=== PATIENT | female | born 1970 | race Caucasian/White ===

== ENCOUNTER 2021-11-19 21:29 | Inpatient (IN) | payer BC ==
[~2021-11-19] VITALS: Ht 170.2 cm; Wt 56.8 kg
--- NOTE | 2021-11-19 22:33 | NUR ---
ekg called and patient taken to room 3
[2021-11-19 23:02] LABS: BASOPHILS # (AUTO) 0.1 X10'3 (0-0.2); BASOPHILS % (AUTO) 0.6 % (0-1); EOSINOPHILS # (AUTO) 0.1 X10'3 (0-0.9); EOSINOPHILS % (AUTO) 0.6 % (0-6); HEMOGLOBIN 13.7 g/dl (12.0-16.0); LYMPHOCYTES # (AUTO) 1.9 X10'3 (1.1-4.8); LYMPHOCYTES % (AUTO) 8.2 % (21-51); MEAN CORPUSCULAR HEMOGLOBIN 32.1 PG (27.0-31.0); MEAN CORPUSCULAR HGB CONC 33.3 g/dL (33.0-36.5); MEAN CORPUSCULAR VOLUME 96.4 FL (78-98); MEAN PLATELET VOLUME 6.9 FL (7.4-10.4); MONOCYTES # (AUTO) 1.3 X10'3 (0-0.9); MONOCYTES % (AUTO) 5.7 % (2-12); NEUTROPHILS # (AUTO) 19.2 X10'3 (1.8-7.7); NEUTROPHILS % (AUTO) 84.9 % (42-75); PLATELET COUNT 307 X10'3 (140-440); RED BLOOD COUNT 4.26 X10'6 (4.20-5.60); RED CELL DISTRIBUTION WIDTH 12.5 % (11.5-14.5); WHITE BLOOD COUNT 22.6 X10'3 (4.5-11.0)
[2021-11-19] MEDS ORDERED: normal saline 1000ML IV soln IVB ONE (23:15)
[2021-11-19] MEDS ORDERED: CefTRIAXone/D5W-Rocephin 1gm 50 ML IV ONE (23:15)
[2021-11-19] MEDS ORDERED: vancomycin/NS 1 GM ADD-VANTAGE 250 ML IV ONE (23:15)
[2021-11-19] MEDS ORDERED: fentaNYL/PF 50MCG/1 ML 2ML syringe IV ONE (23:20)
[2021-11-19] MEDS ORDERED: acetaminophen 325mg tablet PO ONE (23:20)
[2021-11-19] MEDS ORDERED: iohexol 300mg/ml 100ml inj. ONE (23:23)
[2021-11-19 23:25] LABS: ALANINE AMINOTRANSFERASE 73 U/L (12-78); ALBUMIN 2.8 G/DL (3.4-5.0); ALBUMIN/GLOBULIN RATIO 0.7 (1.1-1.5); ALKALINE PHOSPHATASE 94 IU/L (46-116); ANION GAP 5 (8-16); ASPARTATE AMINO TRANSFERASE 97 U/L (10-37); BILIRUBIN,TOTAL 0.6 MG/DL (0.1-1.0); BLOOD UREA NITROGEN 19 MG/DL (7-18); BUN/CREATININE RATIO 13.9 (6.6-38.0); CALCIUM 8.5 MG/DL (8.5-10.1); CHLORIDE 104 MMOL/L (99-107); CREATININE 1.37 MG/DL (0.40-0.90); GLUCOSE 114 MG/DL (70-104); POTASSIUM 3.4 MMOL/L (3.5-5.1); SODIUM 138 MMOL/L (135-145); TOTAL CARBON DIOXIDE 28.9 MMOL/L (24-32); TOTAL PROTEIN 6.6 G/DL (6.4-8.2); eGFR 41 ML/MIN
[2021-11-19 23:27] LABS: C-REACTIVE PROTEIN 22.39 MG/DL (0.0-0.5); MAGNESIUM 2.1 MG/DL (1.5-2.4)
[2021-11-20] VITALS (24 sets, daily range): BP systolic 100–146; BP diastolic 66–103
[2021-11-20] MEDS ORDERED: clindamycin 600mg/D5W 50ml 50 ML IV ONE (00:50)
[2021-11-20] MEDS ORDERED: acetaminophen 325mg tablet PO PRN (01:20)
[2021-11-20] MEDS ORDERED: potassium CL 10mEq/100ml bag 100 ML IV PRN (01:20)
[2021-11-20] MEDS ORDERED: magnesium 2GM in 50ml NS 50 ML IV PRN (01:20)
[2021-11-20] MEDS ORDERED: POTASSIUM BICARB 20meq eff tab 20 MEQ TABLET.EFF PO PRN ×2 (01:20)
[2021-11-20] MEDS ORDERED: morphine 2 MG/ML inj. syringe IV PRN ×3 (01:20→14:20)
[2021-11-20] MEDS ORDERED: magnesium 4gm in 100ml NS 100 ML IV PRN (01:20)
[2021-11-20] MEDS ORDERED: magnesium hydroxide 30ml (MOM) UD suspension PO PRN (01:20)
[2021-11-20] MEDS ORDERED: mag hydrox/Alum hydrox/simeth 30ml oral suspension PO PRN (01:20)
[2021-11-20] MEDS ORDERED: magnesium Cl slow-release 64mg tablet PO PRN (01:20)
[2021-11-20] MEDS: clindamycin 600mg/D5W 50ml 50 ML IV SCH ×2 (02:00→07:50)
[2021-11-20] MEDS: normal saline 1000ml 1,000 ML IV SCH ×3 (02:15→22:49)
[2021-11-20] MEDS ORDERED: NO HOME MEDS (04:51)
[2021-11-20] MEDS: docusate sod 100mg capsule PO SCH ×2 (07:34→21:06)
[2021-11-20] MEDS: heparin, porcine 5000 units/ml vial SQ SCH ×2 (07:36→20:59)
[2021-11-20] MEDS: ondansetron/PF 4mg/2ml inj IV PRN (07:41)
[2021-11-20] MEDS ORDERED: vancomycin/NS 1 GM ADD-VANTAGE 250 ML IV SCH (08:00)
[2021-11-20] MEDS: K and/or MAG REPLACEMENT MC SCH ×2 (08:00→20:00)
[2021-11-20] MEDS ORDERED: CefTRIAXone/D5W-Rocephin 1gm 50 ML IV SCH (08:00)
[2021-11-20] MEDS ORDERED: morphine 4 MG/ML inj SYRINge IM ONE (08:55)
[2021-11-20 09:06] LABS: MAGNESIUM 2.1 MG/DL (1.5-2.4)
[2021-11-20] MEDS ORDERED: HYDROcodone/acetaminophen 10/325mg tab PO ONE (10:40)
--- NOTE | 2021-11-20 11:00 | NUR ---
INCREASED SWELLING INTO PTS CHEST AND BACK. DECREASED MOBILITY. NOTIFIED MD OF CHANGES AND NOTIFIED OF NO URINE OUTPUT. GAVE VERBAL ORDER FOR ANDERSON CATH.
[2021-11-20] MEDS ORDERED: morphine 2 MG/ML inj. syringe IV ONE (11:25)
--- NOTE | 2021-11-20 11:28 | NUR ---
DR. LOWE AT BEDSIDE. VERBAL ORDERS FOR INCREASED PAIN MEDICATION GIVEN.
[2021-11-20] MEDS ORDERED: linezolid 600mg/300ml PREMIX 300 ML IV STA (11:40)
--- NOTE | 2021-11-20 11:40 | NUR ---
DR. CHEEK AT BEDSIDE
[2021-11-20] MEDS ORDERED: CefTRIAXone/D5W-Rocephin 1gm 50 ML IV STA (11:42)
[2021-11-20 13:03] LABS: URINE HCG NEGATIVE (NEG)
[2021-11-20 13:05] LABS: CLARITY,URINE SLIGHTLY CLOUDY (Clear); COLOR,URINE YELLOW (Yellow); GLUCOSE, URINE NEGATIVE (Neg); KETONES,URINE NEGATIVE (Neg); LEUKOCYTE ESTERASE ,URINE NEGATIVE (Neg); NITRITES, URINE POSITIVE (Neg); OCCULT BLOOD,URINE MODERATE (Neg); PROTEIN,URINE TRACE mg/dl (Neg); UROBILINOGEN,URINE 0.2 E.U/dL (0.2-1.0)
[2021-11-20 13:11] LABS: UA COLLECTION TYPE CLN CATCH MIDSTREAM
[2021-11-20 13:12] LABS: RBC,URINE TNTC /HPF (0-2); WBC,URINE 50-100 /HPF (0-4)
[2021-11-20 13:13] LABS: BACTERIA,URINE 1+ /HPF (Neg); MUCUS STRANDS NONE SEEN /LPF (Neg); SQUAMOUS EPITHELIAL CELL,UR FEW /LPF (FEW)
[2021-11-20 13:14] LABS: WBC CASTS 0-3 /LPF (NEGATIVE); WBC CLUMPS,URINE FEW /HPF (NEGATIVE)
[2021-11-20 13:15] LABS: COARSE GRANULAR CAST 0-3 /LPF (NEGATIVE)
[2021-11-20 13:16] LABS: URINE AMPHETAMINE SCREEN POSITIVE (Neg); URINE BARBITUATE SCREEN NEGATIVE (Neg); URINE BENZODIAZEPINES SCREEN POSITIVE (Neg); URINE CANNABINOID SCREEN POSITIVE (Neg); URINE COCAINE SCREEN NEGATIVE (Neg); URINE METHADONE SCREEN NEGATIVE (Neg); URINE OPIATE SCREEN POSITIVE (Neg); URINE PHENCYCLIDINE SCREEN NEGATIVE (Neg)
[2021-11-20] MEDS ORDERED: proCHLORperazine 10 MG/2 ml inj IV PRN (14:20)
[2021-11-20] MEDS ORDERED: morphine 4 MG/ML inj SYRINge IV PRN (14:20)
[2021-11-20] MEDS ORDERED: ringers solution, lacted 1,000 ML IV SCH (14:20)
[2021-11-20] MEDS ORDERED: meperidine/PF 25mg/ml syringe IV PRN ×3 (14:20)
[2021-11-20] MEDS ORDERED: ondansetron/PF 4mg/2ml inj IV PRN (14:20)
--- NOTE | 2021-11-20 14:31 | NUR ---
NOTIFIED PT MOTHER OF PT CONDITION PER PT REQUEST.
--- NOTE | 2021-11-20 14:33 | NUR ---
[facility] (MOTHER)- [phone]
[2021-11-20] MEDS ORDERED: vancomycin 1,000mg inj ONE (14:35)
[2021-11-20] MEDS ORDERED: midazolam 1 mg/ML 2ml injection ONE (14:48)
[2021-11-20] MEDS ORDERED: fentaNYL /PF 50mcg/ml 5ml ampule ONE (14:50)
[2021-11-20] MEDS ORDERED: sevoflurane 250ml liquid IH ONE (15:44)
--- NOTE | 2021-11-20 16:45 | NUR ---
Received from OR via TALAT, accompanied by Anesthesiologist DR KING and report given by Anesthesiologist AND LAND EXAMINER. LEFT FOREARM W/WOUND VAC W/BLACK FOAM W/S/S DRAINAGE IN DRAINAGE DEVICE. LEFT HAND EDEMATOUS AND SKIN TAUNT, COOL TO THE TOUCH, BILAT ARMS COOL AND RADIAL AND ULNAR PULSES EQUALLY WEAK. Addendum: 11/20/21 at 1720 by Elysia Velasquez RN Amended: Links added.
[2021-11-20] MEDS ORDERED: dexamethasone sod phosphate 4mg/ml inj. ONE (16:51)
[2021-11-20] MEDS ORDERED: propofol inj 20 ML IV ONE (16:51)
[2021-11-20] MEDS ORDERED: ondansetron/PF 4mg/2ml inj ONE (16:51)
[2021-11-20] MEDS ORDERED: glycopyrrolate 0.2mg/ml inj ONE (16:51)
[2021-11-20] MEDS ORDERED: LIDOcaine 2% (20mg/ml) 5ml vial ONE (16:51)
[2021-11-20] MEDS ORDERED: neostigmine methylsulfate 1 MG/ML 10ml vial ONE (16:51)
[2021-11-20] MEDS ORDERED: rocuronium 10mg/ml inj IV ONE (16:51)
[2021-11-20] MEDS: morphine 4 MG/ML inj SYRINge IV PRN ×2 (17:29→18:17)
[2021-11-20] MEDS: metroNIDAZOLE-Flagyl 500mg/NS 100 ML IV SCH (17:40)
--- NOTE | 2021-11-20 18:49 | NUR ---
ACCIDENTALLY CHARTED AGAINST THE FLOOR'S MORPHINE ORDER, THOSE 2 DOSES ARE CORRECT EXCEPT THEY SHOULD HAVE BEEN CHARTER ON THE PACU MORPHINE 4MG ORDERS. Addendum: 11/20/21 at 1850 by Elysia Velasquez RN Amended: Links added.
--- NOTE | 2021-11-20 19:05 | NUR ---
Report called to receiving nurse. Transferred via GURNEY, 1 BAG OF Belongings AND 1 CUT RING FROM THE ED IN PLASTIC CONTAINER IN PTS BELONG BAG SENT W/PT TO ROOM 4023B. PTS MOTHER CALLED AND NOTIFIED OF PTS TRANSFER. RECEIVING RN AT BEDSIDE TO RECEIVE PT, BLL, CALL LIGHT GIVEN, SIDE RAILS UP X 2. Special Issues communicated to receiving nurse. YES. Addendum: 11/20/21 at 1928 by Elysia Velasquez RN Amended: Links added.
--- NOTE | 2021-11-20 19:15 | NUR ---
Pt arrived from recovery after report received. Pt to be on Tele. Wvac in place @125mmhg approx 60ml in canister, no leak detected. Pt erlinky able to transfer from gurney to bed with assist. Addendum: 11/21/21 at 0645 by Tati Mcgrath RN Amended: Links added.
[2021-11-20] MEDS: HYDROcodone/acetaminophen 10/325mg tab PO PRN (20:58)
[2021-11-20] MEDS: linezolid 600mg/300ml PREMIX 300 ML IV SCH (21:10)
[2021-11-21] MEDS ORDERED: vancomycin/NS 1 GM ADD-VANTAGE 250 ML IV SCH
[2021-11-21] MEDS: morphine 4 MG/ML inj SYRINge IV PRN ×5 (01:55→23:59)
[2021-11-21 02:00] VITALS: BP 111/72
[2021-11-21 06:00] VITALS: BP 91/57
[2021-11-21] MEDS: HYDROcodone/acetaminophen 10/325mg tab PO PRN ×3 (07:46→22:46)
[2021-11-21] MEDS: K and/or MAG REPLACEMENT MC SCH ×2 (08:00→19:11)
[2021-11-21] MEDS ORDERED: CefTRIAXone 2gm/D5W 50ml BAG 50 ML IV SCH (08:00)
[2021-11-21 08:10] LABS: BASOPHILS # (AUTO) 0.1 X10'3 (0-0.2); BASOPHILS % (AUTO) 0.4 % (0-1)
[2021-11-21 08:11] LABS: EOSINOPHILS % (AUTO) 0 % (0-6); HEMATOCRIT 36.4 % (35.0-45.0); HEMOGLOBIN 12.5 g/dl (12.0-16.0); LYMPHOCYTES % (AUTO) 3.3 % (21-51); MEAN CORPUSCULAR HEMOGLOBIN 33.4 PG (27.0-31.0); MEAN CORPUSCULAR HGB CONC 34.2 g/dL (33.0-36.5); MEAN CORPUSCULAR VOLUME 97.7 FL (78-98); MEAN PLATELET VOLUME 7.8 FL (7.4-10.4); MONOCYTES # (AUTO) 1.7 X10'3 (0-0.9); MONOCYTES % (AUTO) 5.6 % (2-12); NEUTROPHILS # (AUTO) 27.6 X10'3 (1.8-7.7); NEUTROPHILS % (AUTO) 90.7 % (42-75); PLATELET COUNT 268 X10'3 (140-440); RED BLOOD COUNT 3.73 X10'6 (4.20-5.60); RED CELL DISTRIBUTION WIDTH 12.7 % (11.5-14.5)
[2021-11-21 08:14] LABS: WHITE BLOOD COUNT 30.4 X10'3 (4.5-11.0)
[2021-11-21 08:20] LABS: ALANINE AMINOTRANSFERASE 71 U/L (12-78); ALBUMIN 1.5 G/DL (3.4-5.0); ALBUMIN/GLOBULIN RATIO 0.5 (1.1-1.5); ALKALINE PHOSPHATASE 98 IU/L (46-116); ANION GAP 9 (8-16); ASPARTATE AMINO TRANSFERASE 41 U/L (10-37); BILIRUBIN,TOTAL 0.4 MG/DL (0.1-1.0); BLOOD UREA NITROGEN 11 MG/DL (7-18); BUN/CREATININE RATIO 10.6 (6.6-38.0); CALCIUM 7.5 MG/DL (8.5-10.1); CHLORIDE 107 MMOL/L (99-107); CREATININE 1.04 MG/DL (0.40-0.90); GLUCOSE 146 MG/DL (70-104); MAGNESIUM 1.7 MG/DL (1.5-2.4); PHOSPHORUS 3.7 MG/DL (2.3-4.5); POTASSIUM 4.3 MMOL/L (3.5-5.1); SODIUM 136 MMOL/L (135-145); TOTAL CARBON DIOXIDE 20.1 MMOL/L (24-32); TOTAL PROTEIN 4.6 G/DL (6.4-8.2); eGFR 56 ML/MIN
--- NOTE | 2021-11-21 08:28 | NUR ---
Page sent to Dr. Jaramillo via [facility] @ PAGER ID: [phone] MESSAGE: radha Joel [id number] WBC = 30.4 today. ABDIEL Lizarraga [id number]
[2021-11-21] MEDS: metroNIDAZOLE-Flagyl 500mg/NS 100 ML IV SCH ×4 (08:32→22:47)
[2021-11-21] MEDS: docusate sod 100mg capsule PO SCH ×2 (08:35→19:23)
[2021-11-21] MEDS: heparin, porcine 5000 units/ml vial SQ SCH ×2 (08:38→19:11)
[2021-11-21 09:19] LABS: TOTAL CELLS COUNTED 100
[2021-11-21 09:20] LABS: BURR CELLS 1+; PLATELET ESTIMATE NORMAL
[2021-11-21 10:00] VITALS: BP 103/70
--- NOTE | 2021-11-21 11:05 | NUR ---
Initial: Pt admit for sepsis and cellulitis, currently POD #1 s/p I&D to left arm. Per EMR pt with a wound VAC in place. Wound care has been consulted, pending assessment at this time. Noted pt receiving IV Linezolid. Pt seen at bedside with friend present for written and verbal high protein and low tyramine nutrition therapy educations. Pt verbalized understanding to educations provided. Pt on a regular diet, pending documentation of PO intake however pt reports only eating the fruit on breakfast tray this morning. Pt reports low appetite then proceeds to state that she's hungry. Food preferences were obtained and d/w dietary, see below. Pt denies food allergies or difficulty chewing/swallowing. No documented BM since admit. Pt states she hasn't had a BM in a few days though adamantly states she will not use the bedside commode and will not proceed to have a BM unless she is able to use the bathroom. Pt receiving routine Colace with PRN MoM available. Pt provided with RD contact information and encouraged to reach out if needed. Will continue to follow closely and make recommendations as appropriate. Recommendations: 1) Continue regular diet 2) Baxter food preferences: strawberry banana smoothie TIDWM 3) Monitor need for ONS/additional protein 4) Routine bowel care 5) Weekly scaled weights Addendum: 11/21/21 at [address] Amended: Links added.
--- NOTE | 2021-11-21 11:54 | NUR ---
Met with patient in regards to substance use and to see if patient wanted any resources for treatment options. Patient is interested in resources for both in and out patient rehabs. I gave patient a list of facilities and my card to call me if she has any questions.
[2021-11-21] MEDS: normal saline 1000ml 1,000 ML IV SCH ×2 (12:48→17:20)
--- NOTE | 2021-11-21 13:00 | NUR ---
Pt/family asking about showers. Pt educated that a shower can be coordinated w/ [facility] to shower just prior to next W drsg change, which will likely be on Wednesday, but a bed bath/wipes can be used to bathe before then. Pt agreed to this plan. Addendum: 11/21/21 at 1954 by Elham Orosco RN PATRICK Sherman, was notified of above discussion and she said will attempt to coordinate on Wednesday if appropriate.
[2021-11-21] MEDS: linezolid 600mg/300ml PREMIX 300 ML IV SCH ×2 (13:12→19:10)
[2021-11-21] MEDS: nicotine 21mg patch - 24 hr TD SCH (13:26)
[2021-11-21] MEDS ORDERED: iohexol 350MG/ML 100ml bottle IV ONE (13:56)
--- NOTE | 2021-11-21 14:00 | NUR ---
Pt's family brought pt Austrian food. Pt ate large amounts, and asked that leftovers remain on her over-bed table
--- NOTE | 2021-11-21 15:43 | NUR ---
WOUND VAC EDUCATION PROVIDED BY WOUND CARE 1. Patient instructed to call the Wound Center or their Home Health Agency immediately if: * They notice a change in the color or amount of the fluid in the canister. * Their wound looks more red than usual or has a foul smell. * The skin around their wound looks reddened or irritated. * The dressing feels loose or appears to be loose. * They experience any increase or changes in their pain. * The alarm will not turn off. 2. Patient instructed that they should not be disconnected from suction for more than 2 hours at a time. * If they are not able to get the suction back on, they need to remove the dressing and take all of the foam out of the wound. * Then moisten sterile gauze with normal saline and place on/in the wound. * Change the dressing once a day until arrangements have been made to replace the wound vac dressing. 3. Patient instructed to turn the wound vac machine OFF and call 911 or go to the ED immediately if their canister fills rapidly with blood. 4. If any of these occur while in the hospital tell a nurse immediately. Addendum: 11/21/21 at 1544 by Whit Angel RN Amended: Links added.
[2021-11-21 18:00] VITALS: BP 98/63
--- NOTE | 2021-11-21 18:30 | NUR ---
Patient report given, questions answered & plan of care reviewed with PEG Duffy.
[2021-11-21 22:00] VITALS: BP 142/94
[2021-11-22] MEDS: ondansetron/PF 4mg/2ml inj IV PRN ×3 (00:07→16:58)
[2021-11-22] MEDS ORDERED: HYDROmorphone 1 mg/ml syringe IV ONE (01:10)
--- NOTE | 2021-11-22 01:10 | NUR ---
PAGER ID: [phone] MESSAGE: Reg: Joel, R [id number]. L arm fasciotomy, Morphine, Cummaquid given still painful. Can we try Toradol? . Dr. Yeung ordered Dilaudid 1mg IV x1, to see if that will work.
[2021-11-22] MEDS: normal saline 1000ml 1,000 ML IV SCH ×3 (03:32→16:56)
[2021-11-22] MEDS: morphine 4 MG/ML inj SYRINge IV PRN ×2 (04:21→07:24)
[2021-11-22 06:11] LABS: BASOPHILS # (AUTO) 0.1 X10'3 (0-0.2); EOSINOPHILS % (AUTO) 0.1 % (0-6); MEAN CORPUSCULAR HGB CONC 33.7 g/dL (33.0-36.5); MEAN PLATELET VOLUME 8.2 FL (7.4-10.4)
[2021-11-22 06:18] LABS: BASOPHILS % (AUTO) 0.2 % (0-1); HEMATOCRIT 43.2 % (35.0-45.0); HEMOGLOBIN 14.5 g/dl (12.0-16.0); LYMPHOCYTES # (AUTO) 2.4 X10'3 (1.1-4.8); LYMPHOCYTES % (AUTO) 5.5 % (21-51); MEAN CORPUSCULAR VOLUME 98.2 FL (78-98); MONOCYTES % (AUTO) 6.9 % (2-12); NEUTROPHILS # (AUTO) 38.3 X10'3 (1.8-7.7); NEUTROPHILS % (AUTO) 87.3 % (42-75); PLATELET COUNT 418 X10'3 (140-440); RED CELL DISTRIBUTION WIDTH 12.8 % (11.5-14.5)
[2021-11-22 06:19] LABS: ALANINE AMINOTRANSFERASE 51 U/L (12-78); ALBUMIN 1.4 G/DL (3.4-5.0); ALBUMIN/GLOBULIN RATIO 0.4 (1.1-1.5); ALKALINE PHOSPHATASE 103 IU/L (46-116); ANION GAP 10 (8-16); ASPARTATE AMINO TRANSFERASE 72 U/L (10-37); BILIRUBIN,TOTAL 0.2 MG/DL (0.1-1.0); BLOOD UREA NITROGEN 17 MG/DL (7-18); BUN/CREATININE RATIO 12.7 (6.6-38.0); CALCIUM 7.5 MG/DL (8.5-10.1); CHLORIDE 105 MMOL/L (99-107); CREATININE 1.34 MG/DL (0.40-0.90); GLUCOSE 134 MG/DL (70-104); MAGNESIUM 1.7 MG/DL (1.5-2.4); PHOSPHORUS 4.3 MG/DL (2.3-4.5); POTASSIUM 4.5 MMOL/L (3.5-5.1); SODIUM 134 MMOL/L (135-145); TOTAL CARBON DIOXIDE 19.5 MMOL/L (24-32); TOTAL PROTEIN 4.6 G/DL (6.4-8.2); eGFR 42 ML/MIN
--- NOTE | 2021-11-22 06:20 | NUR ---
Problems reprioritized. Patient report given, questions answered & plan of care reviewed with Xuan RUVALCABA. Addendum: 11/22/21 at 0636 by Tati Mcgrath RN Amended: Links added.
[2021-11-22 06:26] LABS: WHITE BLOOD COUNT 43.8 X10'3 (4.5-11.0)
[2021-11-22 06:53] LABS: PLATELET ESTIMATE NORMAL; TOTAL CELLS COUNTED 100
--- NOTE | 2021-11-22 07:00 | NUR ---
PATIENT REFUSED AM VITALS.
[2021-11-22] MEDS: K and/or MAG REPLACEMENT MC SCH ×2 (07:12→20:00)
[2021-11-22] MEDS: metroNIDAZOLE-Flagyl 500mg/NS 100 ML IV SCH (07:31)
[2021-11-22] MEDS: heparin, porcine 5000 units/ml vial SQ SCH ×2 (07:34→16:57)
--- NOTE | 2021-11-22 07:42 | NUR ---
43.8 WBC CALLED IN AT SHIFT CHANGE BY NOC RN TO DR MAIER, PATIENT ALREADY ON [address] MAIER ORDERED A SED RATE AND PROCALCITONIN AND I WILL ADDRESS WITH DAY SHIFT DR WELL.
[2021-11-22] MEDS: nicotine 21mg patch - 24 hr TD SCH (08:00)
[2021-11-22] MEDS: docusate sod 100mg capsule PO SCH ×2 (08:00→20:16)
[2021-11-22] MEDS: linezolid 600mg/300ml PREMIX 300 ML IV SCH (08:39)
[2021-11-22] MEDS ORDERED: meropenem inj 1 GM in normal saline 100ml IV soln 100 ML IV SCH ×3 (09:20→10:00)
[2021-11-22] MEDS: clindamycin-Cleocin 900mg/D5W 50 ML IV SCH ×2 (09:48→16:56)
[2021-11-22] MEDS ORDERED: HYDROmorphone inj. 0.5 MG/0.5 ML DISP.SYRIN IV PRN (09:50)
[2021-11-22 10:00] VITALS: BP 173/106
[2021-11-22 12:24] VITALS: BP 154/103
--- NOTE | 2021-11-22 12:37 | NUR ---
BP HIGH 154/103 ON RECHECK..PRIOR 173/106. FIRST CHECK BEFORE DILAUDID, SECOND CHECK AFTER DILAUDID. DR MARINO AWARE. WE ARE WORKING ON GETTING PAIN CONTROL. HE SAYS KEEP TRYING TO GET HER PAIN CONTROLLED AND SEE IF THAT HELPS FIRST.
[2021-11-22] MEDS: HYDROmorphone inj. 0.5 MG/0.5 ML DISP.SYRIN IV PRN ×4 (13:07→23:05)
[2021-11-22] MEDS ORDERED: bisacodyl 10mg suppository rectal RC STA (16:50)
--- NOTE | 2021-11-22 18:15 | NUR ---
PATIENT VERY ANXIOUS TRYING TO HAVE BM ON TOILET AND DECIDED TO LAY DOWN ON FLOOR WHEN SHE COULDN'T HAVE A BM. SHE DID NOT FALL. SHE APPEARS TO BE HAVING POSSIBLY SOME SUBSTANCE WITHDRAWALS. SHE IS VERY RESTLESS AND IMPULSIVE. SIGNIFICANT OTHER AT BEDSIDE. PATIENT BACK IN BED AT THIS TIME.
--- NOTE | 2021-11-22 18:47 | NUR ---
PATIENT REPORT GIVEN TO ANAI RUVALCABA, WHO HAD PATIENT LAST NIGHT. SHE IS UPDATED ON PATIENT BEHAVIOR AND ALL UPDATES. DR MARINO JUST PAGED REGARDING POSSIBLE WITHDRAW FROM AMPHETAMINES, BEHAVIOR CHANGES.
[2021-11-22] MEDS: sennosides/docusate sodium tablet PO SCH (20:16)
[2021-11-22 22:00] VITALS: BP 128/71
[2021-11-22] MEDS: meropenem inj 1 GM in normal saline 100ml IV soln 100 ML IV SCH (23:01)
[2021-11-22] MEDS ORDERED: VANCOMYCIN LEVEL IV ONE (23:30)
[2021-11-23] VITALS (34 sets, daily range): BP systolic 89–199; BP diastolic 37–79
[2021-11-23] MEDS: HYDROcodone/acetaminophen 10/325mg tab PO PRN (00:13)
--- NOTE | 2021-11-23 00:30 | NUR ---
Pt having a difficult time talking, and per charge had difficult time swallowing [place]. Nurse in to assess pt and change wound vac canister. Assisted pt in sitting up and unable to get pulse ox on pt and pts eyes rolling and then fixed gaze, responding poorly. Rapid response was called, then a CODE difficulty finding a pulse on pt, pt shallow guppy breathing, cold to the touch. CODE TEAM arrived. Addendum: 11/23/21 at 0232 by Tati Mcgrath RN Amended: Links added.
[2021-11-23] MEDS ORDERED: iohexol 300mg/ml 100ml inj. ONE (01:47)
[2021-11-23] MEDS ORDERED: midazolam 1 mg/ML 2ml injection ONE (01:48)
[2021-11-23] MEDS ORDERED: midazolam 100mg in NS 100ml 100 ML IV PRN (01:50)
[2021-11-23] MEDS ORDERED: FENTANYL-0.9 % NACL/PF 100 ML IV PRN (01:50)
[2021-11-23] MEDS ORDERED: midazolam 1 mg/ML 2ml injection IV ONE (01:50)
--- NOTE | 2021-11-23 02:00 | NUR ---
Report received from Tati RUVALCABA and questions answered. Pt intubated, sedated, and central line placed during rapid response by Dr. Patel. Levophed drip also started due to decreased BP. Taking pt to CT for CT chest/abd/pelvis with contrast with RN Atiya Albarado, RT Ezequiel, and PCT Robert.
[2021-11-23] MEDS ORDERED: ondansetron/PF 4mg/2ml inj IV PRN (02:25)
[2021-11-23] MEDS ORDERED: normal saline 1000ml 1,000 ML IV SCH (02:25)
[2021-11-23] MEDS ORDERED: acetaminophen 325mg tablet PO PRN (02:25)
[2021-11-23] MEDS ORDERED: magnesium 4gm in 100ml NS 100 ML IV PRN ×2 (02:25→13:00)
[2021-11-23] MEDS ORDERED: magnesium Cl slow-release 64mg tablet PO PRN (02:25)
[2021-11-23] MEDS ORDERED: potassium CL 10mEq/100ml bag 100 ML IV PRN (02:25)
[2021-11-23] MEDS ORDERED: magnesium 2GM in 50ml NS 50 ML IV PRN (02:25)
[2021-11-23] MEDS ORDERED: POTASSIUM BICARB 20meq eff tab 20 MEQ TABLET.EFF PO PRN ×2 (02:25)
[2021-11-23] MEDS ORDERED: LIDOcaine 2% 10ml TOPICAL JELLY (Urojet) TP ONE (02:25)
[2021-11-23] MEDS ORDERED: magnesium hydroxide 30ml (MOM) UD suspension PO PRN (02:25)
[2021-11-23] MEDS ORDERED: mag hydrox/Alum hydrox/simeth 30ml oral suspension PO PRN (02:25)
[2021-11-23 02:39] LABS: PHOSPHORUS 13.1 MG/DL (2.3-4.5)
[2021-11-23] MEDS ORDERED: albumin (human) 25% 100 ML IV solution IV ONE (02:45)
[2021-11-23] MEDS ORDERED: albumin (Human) 5% 250ml 250 ML IV SCH (02:45)
[2021-11-23 02:53] LABS: APTT > 139 SECONDS (22-32)
[2021-11-23] MEDS ORDERED: sodium bicarbonate (8.4%) 1 mEq/ml syringe IV ONE (02:55)
[2021-11-23 03:05] LABS: BASOPHILS # (AUTO) 0.1 X10'3 (0-0.2); BASOPHILS % (AUTO) 0.3 % (0-1); EOSINOPHILS # (AUTO) 0.3 X10'3 (0-0.9); EOSINOPHILS % (AUTO) 0.7 % (0-6); LYMPHOCYTES # (AUTO) 3.9 X10'3 (1.1-4.8); LYMPHOCYTES % (AUTO) 9.4 % (21-51); MEAN PLATELET VOLUME 7.7 FL (7.4-10.4); MONOCYTES % (AUTO) 7.1 % (2-12); NEUTROPHILS # (AUTO) 34.2 X10'3 (1.8-7.7); NEUTROPHILS % (AUTO) 82.5 % (42-75); PLATELET COUNT 307 X10'3 (140-440)
[2021-11-23 03:12] LABS: ABG BASE EXCESS -32.9 mmol/L (-2.0-2.0); ABG HCO3 2.7 mmol/L (22.0-26.0); ABG OXYGEN SATURATION 99.4 % (94-97); ABG PCO2 (T) 20.6 mmHg (32.0-45.0); ABG PO2 (T) 284.6 mmHg (75.0-100.0); FCOHb 0.3 % (0.0-3.9); FMetHb 0.5 % (0.0-1.5); FO2Hb 98.6 % (94-97); TOTAL HEMOGLOBIN 16.2 G/dl (12.0-16.0)
[2021-11-23 03:13] LABS: ABG BASE EXCESS -28.1 mmol/L (-2.0-2.0); ABG HCO3 5.4 mmol/L (22.0-26.0); ABG OXYGEN SATURATION 99.5 % (94-97); ABG PCO2 (T) 29.2 mmHg (32.0-45.0); ABG PO2 (T) 512.6 mmHg (75.0-100.0); FCOHb 0.2 % (0.0-3.9); FMetHb 0.4 % (0.0-1.5); FO2Hb 98.9 % (94-97); PATIENT TEMPERATURE 33.5; PEEP 5 cm H2O; RESPIRATORY RATE 20 b/min; TIDAL VOLUME 400 mL; TOTAL HEMOGLOBIN 11.7 G/dl (12.0-16.0)
[2021-11-23] MEDS ORDERED: sodium bicarbonate (8.4%) 1 mEq/ml syringe ONE (03:14)
--- NOTE | 2021-11-23 03:14 | NUR ---
Pt tolerated CT well and then transferred to ICU bed 2041. Pt transferred over to our monitor and drips are infusing through pumps. Dr. Marie called and updated with pt condition, new orders received.
[2021-11-23 03:15] LABS: ALBUMIN/GLOBULIN RATIO 0.4 (1.1-1.5); ALKALINE PHOSPHATASE 403 IU/L (46-116); ANION GAP 28 (8-16); BILIRUBIN,TOTAL 0.4 MG/DL (0.1-1.0); BLOOD UREA NITROGEN 29 MG/DL (7-18); BUN/CREATININE RATIO 8.2 (6.6-38.0); CALCIUM 7.6 MG/DL (8.5-10.1); CHLORIDE 100 MMOL/L (99-107); CREATININE 3.55 MG/DL (0.40-0.90); GLUCOSE 61 MG/DL (70-104); POTASSIUM 5.1 MMOL/L (3.5-5.1); SODIUM 137 MMOL/L (135-145); TOTAL PROTEIN 3.3 G/DL (6.4-8.2); eGFR 14 ML/MIN
[2021-11-23 03:27] LABS: HEMATOCRIT 40.1 % (35.0-45.0); HEMOGLOBIN 13.8 g/dl (12.0-16.0); RED BLOOD COUNT 4.06 X10'6 (4.20-5.60)
[2021-11-23 03:28] LABS: MEAN CORPUSCULAR HGB CONC 34.4 g/dL (33.0-36.5); MEAN CORPUSCULAR VOLUME 98.6 FL (78-98); RED CELL DISTRIBUTION WIDTH 12.2 % (11.5-14.5)
[2021-11-23 03:29] LABS: WHITE BLOOD COUNT 41.4 X10'3 (4.5-11.0)
[2021-11-23] MEDS: NORepinephrine 8mg/ 250ml NS 250 ML IV SCH ×2 (03:31→09:35)
[2021-11-23 03:32] LABS: TOTAL CARBON DIOXIDE 8.6 MMOL/L (24-32)
[2021-11-23] MEDS: sodium bicarbonate (8.4%) inj. 150 MEQ in dextrose 5%-water 1,000 ML IV SCH ×3 (03:32→15:46)
[2021-11-23 03:33] LABS: ALANINE AMINOTRANSFERASE 1583 U/L (12-78); ASPARTATE AMINO TRANSFERASE 3340 U/L (10-37)
[2021-11-23 03:36] LABS: MAGNESIUM 4.3 MG/DL (1.5-2.4)
[2021-11-23] MEDS: heparin, porcine 5000 units/ml vial SQ SCH ×4 (03:46→23:23)
[2021-11-23] MEDS: albumin (Human) 5% 250ml 250 ML IV SCH ×6 (03:52→22:11)
[2021-11-23] MEDS: clindamycin-Cleocin 900mg/D5W 50 ML IV SCH ×4 (03:52→23:37)
--- NOTE | 2021-11-23 04:06 | NUR ---
Attempted to call pts contact her Mother [phone], no answer will inform ICU. Addendum: 11/23/21 at 0408 by Tati Mcgrath RN Amended: Links added.
[2021-11-23] MEDS: normal saline 1000ml 1,000 ML IV SCH (04:33)
[2021-11-23 04:37] LABS: NUCLEATED RED BLOOD CELLS 1 /100WBC (0-0); PLATELET ESTIMATE NORMAL; TOTAL CELLS COUNTED 100
[2021-11-23 04:38] LABS: BURR CELLS 2+
[2021-11-23 04:39] LABS: TOXIC GRANULATION 2+; TOXIC VACUOLATION 3+
[2021-11-23 04:41] LABS: SMUDGE CELLS 2+
--- NOTE | 2021-11-23 06:29 | NUR ---
Problems reprioritized. Patient report given, questions answered & plan of care reviewed with Kirsten RUVALCABA.
[2021-11-23] MEDS: vasopressin inj. 40 UNIT in normal saline 50ml IV soln 38 ML IV SCH ×3 (06:30→23:23)
[2021-11-23] MEDS ORDERED: vancomycin 1,000mg inj ONE (07:18)
[2021-11-23] MEDS: sennosides/docusate sodium tablet PO SCH ×2 (07:41→20:00)
[2021-11-23] MEDS: docusate sod 100mg capsule PO SCH ×3 (07:42→20:00)
[2021-11-23] MEDS: K and/or MAG REPLACEMENT MC SCH ×3 (07:42→20:00)
[2021-11-23] MEDS ORDERED: heparin, porcine 5000 units/ml vial SQ SCH (08:00)
[2021-11-23] MEDS: nicotine 21mg patch - 24 hr TD SCH (08:00)
--- NOTE | 2021-11-23 08:00 | NUR ---
Reassessment: Noted pt now intubated and sedated. Pt had poor PO intake prior to intubation, recommend prompt initiation of nutrition support if expected prolonged intubation, recs below. LBM 11/19 though receiving multiple bowel care meds. Will continue to monitor. Recommendations: 1) IF TF, Continuous using Vital AF at 55ml/hr goal to provide 1320ml volume, 1584kcals, 99g protein, 1071ml free water 2) IF TF, Additional water flush 100ml Q4h; monitor serum Na 3) IF TF, PALB Q / 4) Routine bowel care 5) Daily scaled weights 6) Advance to Regular diet upon extubation Addendum: 11/23/21 at [address] Amended: Links added.
[2021-11-23 08:51] LABS: ABG BASE EXCESS -13.2 mmol/L (-2.0-2.0); ABG HCO3 12.6 mmol/L (22.0-26.0); ABG OXYGEN SATURATION 93.5 % (94-97); ABG PCO2 (T) 26.9 mmHg (32.0-45.0); ABG PO2 (T) 68.4 mmHg (75.0-100.0); ALLEN'S TEST POSITIVE; FCOHb 0.2 % (0.0-3.9); FMetHb 0.4 % (0.0-1.5); FO2Hb 92.9 % (94-97); PATIENT TEMPERATURE 35.2; PEEP 5 cm H2O; RESPIRATORY RATE 22 b/min; TIDAL VOLUME 400 mL; TOTAL HEMOGLOBIN 10.8 G/dl (12.0-16.0)
--- NOTE | 2021-11-23 10:00 | NUR ---
Dr. Marie rounded and updated on patient's labs and current condition. He was informed that the patient doesn't have a cough or gag, doesn't have a corneal reflex, and doesn't respond to painful stimuli. CT of the head was ordered. Dr. Marie also plans for a nephrology consult to start dialysis on the patient.
--- NOTE | 2021-11-23 10:40 | NUR ---
Took patient to CT via bed with RT, RN and PCT x2. Patient tolerated well.
[2021-11-23] MEDS: meropenem inj 1 GM in normal saline 100ml IV soln 100 ML IV SCH ×2 (10:57→22:08)
--- NOTE | 2021-11-23 12:12 | NUR ---
Patient sister is bedside, update given by primary RN. Sister is visible upset and "not understanding what is going on". Questions answered and Dr. Marie was asked to come and talk to the patient's family.
--- NOTE | 2021-11-23 12:17 | NUR ---
Dr. Reardonwe here to talk to patient's sister and explained that the patient is very critical and that she may need to be placed on CVVH.
[2021-11-23] MEDS ORDERED: potassium Cl 40MEQ/250ML bag 270 ML IV PRN (13:00)
[2021-11-23] MEDS ORDERED: sodium phosphate inj. 30 MMOL in normal saline 250ml IV soln 250 ML IV PRN (13:00)
[2021-11-23] MEDS: bicarb dialysis sol 2k/0 Ca2+ 5,000 ML HE SCH ×3 (13:00→18:04)
[2021-11-23] MEDS ORDERED: citrate dextrose 1000ml IV sol 1,000 ML IV PRN (13:00)
[2021-11-23] MEDS ORDERED: normal saline 1000ml 100 ML IV PRN (13:00)
[2021-11-23] MEDS ORDERED: calcium chloride inj. 10,000 MG in normal saline 500ml IV soln 400 ML IV PRN ×2 (13:00→15:15)
[2021-11-23] MEDS ORDERED: heparin 1,000 units/ml 10ml inj IV ONE (13:00)
[2021-11-23] MEDS ORDERED: mannitol 12.5gm/50mL VIAL IV ONE (13:00)
[2021-11-23] MEDS ORDERED: calcium chloride inj. 1,000 MG in normal saline 100ml IV soln 100 ML IV PRN (13:00)
[2021-11-23 14:56] LABS: ACETAMINOPHEN 13.9 UG/ML (10-30); ALBUMIN 2.1 G/DL (3.4-5.0); ALBUMIN/GLOBULIN RATIO 2.1 (1.1-1.5); ALKALINE PHOSPHATASE 316 IU/L (46-116); ANION GAP 5 (8-16); BILIRUBIN,TOTAL 0.8 MG/DL (0.1-1.0); BLOOD UREA NITROGEN 34 MG/DL (7-18); BUN/CREATININE RATIO 9.5 (6.6-38.0); CHLORIDE 103 MMOL/L (99-107); CREATININE 3.59 MG/DL (0.40-0.90); GLUCOSE 192 MG/DL (70-104); MAGNESIUM 2.9 MG/DL (1.5-2.4); SODIUM 132 MMOL/L (135-145); TOTAL CARBON DIOXIDE 24.1 MMOL/L (24-32); TOTAL PROTEIN 3.1 G/DL (6.4-8.2); eGFR 13 ML/MIN
[2021-11-23 14:58] LABS: CALCIUM 5.7 MG/DL (8.5-10.1)
[2021-11-23 15:17] LABS: ALANINE AMINOTRANSFERASE 2717 U/L (12-78); ASPARTATE AMINO TRANSFERASE > 7000 U/L (10-37)
[2021-11-23 15:33] LABS: CREATINE KINASE 23450 U/L (26-192)
[2021-11-23 16:54] LABS: ABG BASE EXCESS -1.6 mmol/L (-2.0-2.0); ABG HCO3 21.4 mmol/L (22.0-26.0); ABG PCO2 (T) 31.3 mmHg (32.0-45.0); ABG PO2 (T) 338.3 mmHg (75.0-100.0); FCOHb 0.2 % (0.0-3.9); FMetHb 0.3 % (0.0-1.5); FO2Hb 98.5 % (94-97); PATIENT TEMPERATURE 37.5; PEEP 5 cm H2O; RESPIRATORY RATE 22 b/min; TIDAL VOLUME 400 mL; TOTAL HEMOGLOBIN 10.8 G/dl (12.0-16.0)
[2021-11-23] MEDS ORDERED: NORepinephrine inj. 32 MG in normal saline 250ml IV soln 218 ML IV SCH (17:00)
[2021-11-23] MEDS ORDERED: propofol 1000mg/100ml bottle 100 ML IV ONE (17:02)
[2021-11-23] MEDS ORDERED: propofol 1000mg/100ml bottle 100 ML IV SCH (17:05)
--- NOTE | 2021-11-23 17:12 | NUR ---
Dr. Marie placed arterial line. Art line reading and blood pressure cuff reading are not correlating. Per Dr. Marie go off of the arterial blood pressure for titration
--- NOTE | 2021-11-23 17:13 | NUR ---
Patient Levophed now running at 0.[address] Marie okay to switch to quad levo. Per Dr. Marie, based on the ABG okay to stop bicarb gtt.
[2021-11-23] MEDS ORDERED: ringers solution, lacted 1,000 ML IV ONE (17:25)
[2021-11-23] MEDS ORDERED: PHENYLephrine 10mg/ml inj. 100 MG in normal saline 250ml IV soln 240 ML IV SCH (17:25)
--- NOTE | 2021-11-23 17:30 | NUR ---
Patient blood pressure maintaining a map of 50s and Levophed was maxed out. MD notified and ordered for a 1L bolus of LR (which was given with dialysis), LR @200ml/hr, and Yassine to be started.
[2021-11-23 17:31] LABS: TRIGLYCERIDES 38 MG/DL (20-135)
[2021-11-23 17:54] LABS: ABG BASE EXCESS -0.6 mmol/L (-2.0-2.0); ABG HCO3 23.5 mmol/L (22.0-26.0); ABG OXYGEN SATURATION 93.9 % (94-97); ABG PCO2 (T) 36.9 mmHg (32.0-45.0); ABG PO2 (T) 76.1 mmHg (75.0-100.0); FCOHb 0.2 % (0.0-3.9); FMetHb 0.3 % (0.0-1.5); FO2Hb 93.4 % (94-97); PATIENT TEMPERATURE 37.4; PEEP 5 cm H2O; RESPIRATORY RATE 22 b/min; TIDAL VOLUME 400 mL; TOTAL HEMOGLOBIN 8.9 G/dl (12.0-16.0)
[2021-11-23 18:15] LABS: HEMOGLOBIN 8.7 g/dl (12.0-16.0)
[2021-11-23 18:17] LABS: HEMATOCRIT 25.1 % (35.0-45.0); MEAN CORPUSCULAR HEMOGLOBIN 33.4 PG (27.0-31.0); MEAN CORPUSCULAR HGB CONC 34.5 g/dL (33.0-36.5); MEAN CORPUSCULAR VOLUME 96.8 FL (78-98); MEAN PLATELET VOLUME 7.2 FL (7.4-10.4); PLATELET COUNT 125 X10'3 (140-440); RED BLOOD COUNT 2.59 X10'6 (4.20-5.60); RED CELL DISTRIBUTION WIDTH 12.2 % (11.5-14.5); WHITE BLOOD COUNT 17.1 X10'3 (4.5-11.0)
--- NOTE | 2021-11-23 18:20 | NUR ---
Patient in room ICU 2041. I have received report from Kirsten and had the opportunity to ask questions and assume patient care.
--- NOTE | 2021-11-23 18:20 | NUR ---
Problems reprioritized. Patient report given, questions answered & plan of care reviewed with PEG Haney.
[2021-11-23 18:50] LABS: GLUCOSE 78 MG/DL (70-104); SODIUM 141 MMOL/L (135-145)
[2021-11-23 18:51] LABS: ANION GAP 13 (8-16); BILIRUBIN,TOTAL 0.8 MG/DL (0.1-1.0); BLOOD UREA NITROGEN 11 MG/DL (7-18); BUN/CREATININE RATIO 8.7 (6.6-38.0); CHLORIDE 103 MMOL/L (99-107); CREATININE 1.26 MG/DL (0.40-0.90); POTASSIUM 3.2 MMOL/L (3.5-5.1); TOTAL CARBON DIOXIDE 24.8 MMOL/L (24-32); TOTAL PROTEIN 2.6 G/DL (6.4-8.2); eGFR 45 ML/MIN
[2021-11-23 18:52] LABS: ALANINE AMINOTRANSFERASE 2864 U/L (12-78); ALBUMIN 1.6 G/DL (3.4-5.0); ALBUMIN/GLOBULIN RATIO 1.6 (1.1-1.5); ALKALINE PHOSPHATASE 234 IU/L (46-116)
[2021-11-23 18:54] LABS: CALCIUM 5.6 MG/DL (8.5-10.1)
[2021-11-23 19:21] LABS: ASPARTATE AMINO TRANSFERASE > 7000 U/L (10-37)
[2021-11-23] MEDS ORDERED: Duosol 4K/3 Ca (w/calcium) 5,000 ML HE SCH (19:25)
[2021-11-23] MEDS: Duosol 4K/3 Ca (w/calcium) 5,000 ML HE SCH ×3 (19:27→21:44)
[2021-11-23 20:05] LABS: APTT > 139 SECONDS (22-32)
[2021-11-23] MEDS ORDERED: normal saline 1000ml 1,000 ML IV ONE (20:05)
[2021-11-23 20:07] LABS: NUCLEATED RED BLOOD CELLS 2 /100WBC (0-0); PLATELET ESTIMATE DECREASED; SMUDGE CELLS 2+; TOTAL CELLS COUNTED 100
[2021-11-23 20:09] LABS: TOXIC GRANULATION 2+; TOXIC VACUOLATION 2+
[2021-11-23 20:10] LABS: BURR CELLS 1+
[2021-11-23] MEDS ORDERED: dextrose 50%-water 50ml dispensing syringe IV ONE (20:20)
[2021-11-23] MEDS: ringers solution, lacted 1,000 ML IV SCH ×2 (20:23→22:00)
--- NOTE | 2021-11-23 20:29 | NUR ---
Spent approx 1 hour talking to family about pt's condition. Agreed with everyone present I will only talk to the decision maker and son Robert t/o the night and he can update other family and they can call him for updates. I called Dr. swan to clarify CRRT orders, he wants Citrate/Calcium only if clotting is an issue so CRRT will be started with no citrate, duosol orders changed. Spoke with Andrea Edgar DNP about continued hypotension. Pt is extremely fluid responsive, current SVV is 16, 1L NS ordered, SVV down to 8, vasopressor dose immediately decreased (See IV spreadsheet), he also ordered FFP and cryo, will give those when available. Pt is hypoglycemic, awaiting call back about whether he prefers D50 pushes vs a D10 gtt. D50 given in the meantime though.
[2021-11-23 20:42] LABS: ALBUMIN 1.7 G/DL (3.4-5.0); ALBUMIN/GLOBULIN RATIO 1.7 (1.1-1.5); ALKALINE PHOSPHATASE 240 IU/L (46-116); ANION GAP 12 (8-16); BILIRUBIN,TOTAL 0.9 MG/DL (0.1-1.0); BLOOD UREA NITROGEN 6 MG/DL (7-18); BUN/CREATININE RATIO 8.5 (6.6-38.0); CHLORIDE 105 MMOL/L (99-107); CREATININE 0.71 MG/DL (0.40-0.90); GLUCOSE 65 MG/DL (70-104); MAGNESIUM 1.9 MG/DL (1.5-2.4); POTASSIUM 3.2 MMOL/L (3.5-5.1); SODIUM 143 MMOL/L (135-145); TOTAL CARBON DIOXIDE 25.8 MMOL/L (24-32); TOTAL PROTEIN 2.7 G/DL (6.4-8.2); eGFR 87 ML/MIN
[2021-11-23 21:02] LABS: ALANINE AMINOTRANSFERASE 3116 U/L (12-78); ASPARTATE AMINO TRANSFERASE > 7000 U/L (10-37)
[2021-11-23 21:03] LABS: CALCIUM 5.5 MG/DL (8.5-10.1)
[2021-11-23] MEDS ORDERED: sodium chloride inj. 154 MEQ in Dextrose 10%-water IV solution 961.5 ML IV SCH (21:30)
[2021-11-23] MEDS ORDERED: glucagon, human recombinant 1mg kit IV ONE (21:30)
[2021-11-23 22:06] LABS: MEAN CORPUSCULAR HEMOGLOBIN 32.9 PG (27.0-31.0); WHITE BLOOD COUNT 14.6 X10'3 (4.5-11.0)
[2021-11-23 22:08] LABS: HEMATOCRIT 23.5 % (35.0-45.0); HEMOGLOBIN 7.9 g/dl (12.0-16.0); MEAN CORPUSCULAR HGB CONC 33.7 g/dL (33.0-36.5); MEAN CORPUSCULAR VOLUME 97.7 FL (78-98); MEAN PLATELET VOLUME 7.7 FL (7.4-10.4); PLATELET COUNT 115 X10'3 (140-440); RED CELL DISTRIBUTION WIDTH 12.4 % (11.5-14.5)
[2021-11-23 22:38] LABS: ALBUMIN 1.6 G/DL (3.4-5.0); ANION GAP 16 (8-16); BLOOD UREA NITROGEN 11 MG/DL (7-18); BUN/CREATININE RATIO 7.1 (6.6-38.0); CHLORIDE 105 MMOL/L (99-107); CREATININE 1.54 MG/DL (0.40-0.90); GLUCOSE 71 MG/DL (70-104); PHOSPHORUS 3.6 MG/DL (2.3-4.5); SODIUM 141 MMOL/L (135-145); eGFR 36 ML/MIN
[2021-11-23 23:01] LABS: HEMOGLOBIN 7.2 g/dl (12.0-16.0); MEAN PLATELET VOLUME 7.4 FL (7.4-10.4)
[2021-11-23 23:02] LABS: MEAN CORPUSCULAR HEMOGLOBIN 32.8 PG (27.0-31.0); MEAN CORPUSCULAR HGB CONC 33.8 g/dL (33.0-36.5); MEAN CORPUSCULAR VOLUME 96.8 FL (78-98); PLATELET COUNT 102 X10'3 (140-440); RED BLOOD COUNT 2.19 X10'6 (4.20-5.60); RED CELL DISTRIBUTION WIDTH 12.6 % (11.5-14.5)
[2021-11-23 23:10] LABS: HEMATOCRIT 21.1 % (35.0-45.0)
[2021-11-23 23:22] LABS: ALBUMIN 1.9 G/DL (3.4-5.0); ANION GAP 18 (8-16); BLOOD UREA NITROGEN 11 MG/DL (7-18); BUN/CREATININE RATIO 6.3 (6.6-38.0); CHLORIDE 104 MMOL/L (99-107); CREATININE 1.75 MG/DL (0.40-0.90); GLUCOSE 51 MG/DL (70-104); MAGNESIUM 2.1 MG/DL (1.5-2.4); SODIUM 141 MMOL/L (135-145); TOTAL CARBON DIOXIDE 19.3 MMOL/L (24-32); eGFR 31 ML/MIN
[2021-11-24] VITALS (20 sets, daily range): BP systolic 81–117; BP diastolic 34–57
[2021-11-24 00:26] LABS: HEMOGLOBIN 7.1 g/dl (12.0-16.0); MEAN CORPUSCULAR HGB CONC 33.4 g/dL (33.0-36.5)
[2021-11-24 00:28] LABS: MEAN CORPUSCULAR VOLUME 98.5 FL (78-98); MEAN PLATELET VOLUME 7.7 FL (7.4-10.4); PLATELET COUNT 104 X10'3 (140-440); RED BLOOD COUNT 2.16 X10'6 (4.20-5.60); RED CELL DISTRIBUTION WIDTH 12.5 % (11.5-14.5); WHITE BLOOD COUNT 15.5 X10'3 (4.5-11.0)
[2021-11-24 00:31] LABS: HEMATOCRIT 21.3 % (35.0-45.0)
[2021-11-24] MEDS ORDERED: DOBUTamine-DoBUTrex 500mg/D5W 250 ML IV SCH (00:35)
[2021-11-24 00:40] LABS: ANION GAP 19 (8-16); BLOOD UREA NITROGEN 11 MG/DL (7-18); BUN/CREATININE RATIO 6.1 (6.6-38.0); CHLORIDE 103 MMOL/L (99-107); CREATININE 1.79 MG/DL (0.40-0.90); GLUCOSE 62 MG/DL (70-104); HDL CHOLESTEROL 18 MG/DL (35-60); LDL CHOLESTEROL 22 MG/DL (50-100); MAGNESIUM 2.1 MG/DL (1.5-2.4); PHOSPHORUS 4.4 MG/DL (2.3-4.5); POTASSIUM 4.1 MMOL/L (3.5-5.1); SODIUM 140 MMOL/L (135-145); TOTAL CARBON DIOXIDE 18.2 MMOL/L (24-32); TRIGLYCERIDES 109 MG/DL (20-135); eGFR 30 ML/MIN
[2021-11-24 00:43] LABS: CHOLESTEROL < 50 MG/DL (0-200)
[2021-11-24 01:13] LABS: BASOPHILS % (AUTO) 0.2 % (0-1); MEAN CORPUSCULAR HEMOGLOBIN 33.1 PG (27.0-31.0); MEAN PLATELET VOLUME 7.6 FL (7.4-10.4); RED BLOOD COUNT 2.07 X10'6 (4.20-5.60); WHITE BLOOD COUNT 16.2 X10'3 (4.5-11.0)
[2021-11-24 01:15] LABS: EOSINOPHILS # (AUTO) 0.7 X10'3 (0-0.9); EOSINOPHILS % (AUTO) 4.6 % (0-6); LYMPHOCYTES # (AUTO) 2.2 X10'3 (1.1-4.8); LYMPHOCYTES % (AUTO) 13.7 % (21-51); MEAN CORPUSCULAR HGB CONC 33.4 g/dL (33.0-36.5); MEAN CORPUSCULAR VOLUME 98.9 FL (78-98); MONOCYTES # (AUTO) 0.7 X10'3 (0-0.9); MONOCYTES % (AUTO) 4.6 % (2-12); NEUTROPHILS # (AUTO) 12.5 X10'3 (1.8-7.7); NEUTROPHILS % (AUTO) 76.9 % (42-75); PLATELET COUNT 98 X10'3 (140-440); RED CELL DISTRIBUTION WIDTH 12.8 % (11.5-14.5)
[2021-11-24] MEDS ORDERED: FENTANYL-0.9 % NACL/PF 100 ML IV PRN (01:15)
[2021-11-24 01:19] LABS: ALBUMIN 1.9 G/DL (3.4-5.0); ANION GAP 21 (8-16); BLOOD UREA NITROGEN 12 MG/DL (7-18); BUN/CREATININE RATIO 6.6 (6.6-38.0); CHLORIDE 103 MMOL/L (99-107); CREATININE 1.81 MG/DL (0.40-0.90); GLUCOSE 58 MG/DL (70-104); MAGNESIUM 2.1 MG/DL (1.5-2.4); PHOSPHORUS 4.9 MG/DL (2.3-4.5); POTASSIUM 4.3 MMOL/L (3.5-5.1); SODIUM 139 MMOL/L (135-145); TOTAL CARBON DIOXIDE 15.1 MMOL/L (24-32); eGFR 29 ML/MIN
[2021-11-24 01:30] LABS: HEMOGLOBIN 6.9 g/dl (12.0-16.0)
[2021-11-24 01:31] LABS: HEMATOCRIT 20.5 % (35.0-45.0)
[2021-11-24] MEDS ORDERED: mineral oil/petrolatum ophthal oint EACHEYE SCH (02:00)
[2021-11-24] MEDS ORDERED: sodium bicarbonate (8.4%) 1 mEq/ml syringe ONE ×2 (02:26→02:33)
[2021-11-24 02:29] LABS: ABG BASE EXCESS -12.9 mmol/L (-2.0-2.0); ABG OXYGEN SATURATION 96.3 % (94-97); ABG PCO2 (T) 28.5 mmHg (32.0-45.0); FCOHb 0.3 % (0.0-3.9); FMetHb 0.4 % (0.0-1.5); FO2Hb 95.6 % (94-97); PEEP 5 cm H2O; RESPIRATORY RATE 22 b/min; TIDAL VOLUME 400 mL; TOTAL HEMOGLOBIN 9.3 G/dl (12.0-16.0)
[2021-11-24] MEDS ORDERED: sodium bicarbonate (8.4%) 1 mEq/ml syringe IV ONE (02:35)
[2021-11-24] MEDS ORDERED: sodium bicarbonate (8.4%) inj. 150 MEQ in dextrose 5%-water 1,000 ML IV SCH (02:40)
[2021-11-24 02:42] LABS: NUCLEATED RED BLOOD CELLS 5 /100WBC (0-0); TOTAL CELLS COUNTED 100
[2021-11-24 02:43] LABS: PLATELET ESTIMATE DECREASED
[2021-11-24 02:45] LABS: ANISOCYTOSIS FEW; BURR CELLS FEW; SMUDGE CELLS 1+; TOXIC GRANULATION 2+; TOXIC VACUOLATION 2+
[2021-11-24] MEDS ORDERED: normal saline 1000ml 1,000 ML IV ONE (03:00)
[2021-11-24 03:16] LABS: BASOPHILS % (AUTO) 0.2 % (0-1); HEMOGLOBIN 7.7 g/dl (12.0-16.0)
[2021-11-24 03:17] LABS: EOSINOPHILS # (AUTO) 0.5 X10'3 (0-0.9); EOSINOPHILS % (AUTO) 3.9 % (0-6); HEMATOCRIT 23.2 % (35.0-45.0); LYMPHOCYTES # (AUTO) 1.9 X10'3 (1.1-4.8); LYMPHOCYTES % (AUTO) 14.5 % (21-51); MEAN CORPUSCULAR HEMOGLOBIN 32.5 PG (27.0-31.0); MEAN CORPUSCULAR HGB CONC 33.1 g/dL (33.0-36.5); MEAN CORPUSCULAR VOLUME 98.3 FL (78-98); MEAN PLATELET VOLUME 7.7 FL (7.4-10.4); MONOCYTES # (AUTO) 0.3 X10'3 (0-0.9); MONOCYTES % (AUTO) 2.1 % (2-12); NEUTROPHILS # (AUTO) 10.2 X10'3 (1.8-7.7); NEUTROPHILS % (AUTO) 79.3 % (42-75); PLATELET COUNT 80 X10'3 (140-440); RED BLOOD COUNT 2.36 X10'6 (4.20-5.60); WHITE BLOOD COUNT 12.9 X10'3 (4.5-11.0)
[2021-11-24] MEDS: albumin (Human) 5% 250ml 250 ML IV SCH (03:23)
--- NOTE | 2021-11-24 03:36 | NUR ---
During the night I was initially able to titrate vasopressors down as long as the pt's SVV was below 14. This required a few IV bolus's OKd by Andrea Edgar DNP. Eventually it was noted the pt's SVV was resolved for a time (around 8-10) but CI and Stroke Volume were quite low (see flowsheet). Dobutamine was started over concern of takotsubo cardiomyopathy, vasopressors were titrated down to the normal range for SVR (albeit on the higher side). Around 0230 the patient had refractory hypotension (vasopressors/dobutamine were increased with no effect on BP and worsening CI). Her ABG was checked which confirmed her bicarb level had dropped and she was acidotic again. ph 7.25, bicarb 13. It was noted to the covering physican the serum CO2 had dropped since the bicarb drip was stopped on day shift with no new orders given at that time. At this time 2 amps of bicarb were given and the bicarb drip reinitiated as well as another liter fluid bolus given. Provider aware that even trying to stay even on UF for CRRT was causing issues with hypovolemia and subsequent low BP and CI. Provider aware that we are no longer pulling any UF at this time off the pt given the frequent bolus's required. When pt's pH normalizes and vasopressors can be safely titrated down a little we will try slowly removing fluid with goal of being even but given how the pt has done the past few hours I doubt this will be possible.
[2021-11-24 03:39] LABS: NUCLEATED RED BLOOD CELLS 3 /100WBC (0-0); TOTAL CELLS COUNTED 100
[2021-11-24 03:40] LABS: PLATELET ESTIMATE DECREASED; SMUDGE CELLS 2+
[2021-11-24 03:41] LABS: ANISOCYTOSIS FEW; TOXIC GRANULATION 2+; TOXIC VACUOLATION 2+
[2021-11-24 03:42] LABS: ALBUMIN 1.6 G/DL (3.4-5.0); ALBUMIN/GLOBULIN RATIO 1.8 (1.1-1.5); ALKALINE PHOSPHATASE 171 IU/L (46-116); ANION GAP 22 (8-16); BILIRUBIN,TOTAL 1.1 MG/DL (0.1-1.0); BLOOD UREA NITROGEN 12 MG/DL (7-18); BUN/CREATININE RATIO 6.7 (6.6-38.0); C-REACTIVE PROTEIN 2.81 MG/DL (0.0-0.5); CALCIUM 7.2 MG/DL (8.5-10.1); CHLORIDE 104 MMOL/L (99-107); CREATININE 1.79 MG/DL (0.40-0.90); GLUCOSE 67 MG/DL (70-104); PHOSPHORUS 5.5 MG/DL (2.3-4.5); POTASSIUM 4.2 MMOL/L (3.5-5.1); SODIUM 143 MMOL/L (135-145); TOTAL CARBON DIOXIDE 17.4 MMOL/L (24-32); TOTAL PROTEIN 2.5 G/DL (6.4-8.2); TRIGLYCERIDES 76 MG/DL (20-135); eGFR 30 ML/MIN
[2021-11-24 04:06] LABS: NUCLEATED RED BLOOD CELLS 5 /100WBC (0-0); TOTAL CELLS COUNTED 100
[2021-11-24 04:08] LABS: PLATELET ESTIMATE DECREASED
--- NOTE | 2021-11-24 04:08 | NUR ---
Lactic Acid this morning came back at 16. This is a bit surprising since being given the bicarb and additional fluid her hemodynamics have improved. She is not overly mottled or anything that would give away her having a lactate this high. She has also been very hypothermic despite having the ventilator circuit heater, CRRT circuit heater, josef hugger and gaymar blanket on for warming measures. Andrea Tala notified of this lab, all care given reviewed including optimizing hemodyamic drips, fluid boluses, blood products, CRRT, etc. Nothing else new to add at this time. Son and decision maker Robert was notified, I asked him to come in if he's able and let him know she is in a dire position at the moment and couldn't promise she would make it through the night much longer.
[2021-11-24 04:32] LABS: ANISOCYTOSIS 1+; SMUDGE CELLS 2+; TOXIC GRANULATION 2+; TOXIC VACUOLATION 2+
[2021-11-24 04:42] LABS: ALANINE AMINOTRANSFERASE 2334 U/L (12-78)
[2021-11-24 04:43] LABS: ASPARTATE AMINO TRANSFERASE > 7000 U/L (10-37)
--- NOTE | 2021-11-24 04:56 | NUR ---
Son Robert arrived. He was updated with his mother's dire condition. Explained options of continuing full code aggresive care, DNR with aggresive medical treatment, not increasing any therapies or withdrawing care.
--- NOTE | 2021-11-24 05:10 | NUR ---
Son Robert indicates he would like to withdraw care but is awaiting other family to arrive at the moment.
[2021-11-24] MEDS: Duosol 4K/3 Ca (w/calcium) 5,000 ML HE SCH ×2 (05:43→05:44)
--- NOTE | 2021-11-24 06:40 | NUR ---
Patient in room ICU 2041. I have received report from PEG Haney and had the opportunity to ask questions and assume patient care. Day shift RN in to take over care of patient. Several family members in the unit dealing with personal "drama". There is apparently a boyfriend of the daughter of the patient named Dexter that is not to be let in. Juliusy is dealing with the issue at this time. Family has been asked to again wait outside of the unit and only come in two at a time. Family has stated an understanding of this.
--- NOTE | 2021-11-24 07:57 | NUR ---
Call out to Dr. Marie, after talking to the family, they have decided to go comfort care. Awaiting orders.
--- NOTE | 2021-11-24 07:58 | NUR ---
Call out to digital technician at family's request. Awaiting return call.
[2021-11-24 08:04] LABS: BASOPHILS % (AUTO) 0.2 % (0-1); EOSINOPHILS # (AUTO) 1.1 X10'3 (0-0.9); EOSINOPHILS % (AUTO) 6.7 % (0-6); HEMATOCRIT 23.2 % (35.0-45.0); HEMOGLOBIN 7.8 g/dl (12.0-16.0); LYMPHOCYTES # (AUTO) 1.4 X10'3 (1.1-4.8); LYMPHOCYTES % (AUTO) 8.7 % (21-51); MEAN CORPUSCULAR HEMOGLOBIN 32.7 PG (27.0-31.0); MEAN CORPUSCULAR HGB CONC 33.5 g/dL (33.0-36.5); MEAN CORPUSCULAR VOLUME 97.5 FL (78-98); MEAN PLATELET VOLUME 7.9 FL (7.4-10.4); MONOCYTES # (AUTO) 0.9 X10'3 (0-0.9); MONOCYTES % (AUTO) 5.3 % (2-12); NEUTROPHILS # (AUTO) 13.1 X10'3 (1.8-7.7); NEUTROPHILS % (AUTO) 79.1 % (42-75); PLATELET COUNT 78 X10'3 (140-440); RED BLOOD COUNT 2.38 X10'6 (4.20-5.60); RED CELL DISTRIBUTION WIDTH 12.6 % (11.5-14.5); WHITE BLOOD COUNT 16.5 X10'3 (4.5-11.0)
[2021-11-24 08:12] LABS: ALBUMIN 1.5 G/DL (3.4-5.0); ANION GAP 16 (8-16); BLOOD UREA NITROGEN 13 MG/DL (7-18); BUN/CREATININE RATIO 7.1 (6.6-38.0); CHLORIDE 106 MMOL/L (99-107); CREATININE 1.83 MG/DL (0.40-0.90); GLUCOSE 106 MG/DL (70-104); MAGNESIUM 1.9 MG/DL (1.5-2.4); PHOSPHORUS 4.7 MG/DL (2.3-4.5); POTASSIUM 4.2 MMOL/L (3.5-5.1); SODIUM 138 MMOL/L (135-145); TOTAL CARBON DIOXIDE 16.1 MMOL/L (24-32); eGFR 29 ML/MIN
--- NOTE | 2021-11-24 08:50 | NUR ---
Net Developer Contract spoke with family and prayed over the patient. Dr. Marie to talk with family about plans for comfort care at about 0915. Son, Robert aware and stated that he will be here and available at that time.
--- NOTE | 2021-11-24 09:01 | NUR ---
Called Donor network and spoke with Silvia. Discussed that patient's family is potentially planning comfort care. Patient is not a candidate for organ donation. Will call and inform them of time of post extubation.
--- NOTE | 2021-11-24 09:04 | NUR ---
Per Dr. Marie hold medications other than pressors and fentanyl until he speaks with patient's family since the plan is for comfort care.
--- NOTE | 2021-11-24 09:20 | NUR ---
Donor network called back and stated that since the patient is a registered donor, they have to fulfill her wishes. They are going to come in and talk with the family around 1000.
[2021-11-24] MEDS ORDERED: morphine 10mg/ml inj. IV PRN (10:20)
--- NOTE | 2021-11-24 10:35 | NUR ---
F/u 11/24: Pt remains intubated now DNR w/ comfort care per EMR. Will continue to follow. Recommendations: 1) bowel care per rx Addendum: 11/24/21 at [address] Amended: Links added.
--- NOTE | 2021-11-24 10:55 | NUR ---
RN IS TO DOCUMENT YES TO ALL APPLICABLE AREAS Pronouncement of : 1. Time Physician Notified: 1055 2. Date of : 11/24/21 3. Time of : 1051 4. DNR/Withdraw life support documented: Yes 5. Monitor strip has been placed on chart: Yes 6. Assessment process is of one-minute duration and includes following criteria: a) Patient is unresponsive to all stimuli: Yes b) Pupils fixed and non-reactive: Yes c) Auscultation of precordium reveals absence of heart tones: Yes d) Auscultation of lungs reveals absence of breath sounds: Yes e) Absence of blood pressure / all vital signs: Yes f) QRS complexes are not present on monitor / EKG strip: Yes g) Pacer spikes without capture: N/A 4. Comments:
--- NOTE | 2021-11-24 11:50 | NUR ---
Donor network called and given time of . [facility] called and they stated they will be here soon.
--- NOTE | 2021-11-24 11:58 | NUR ---
[facility] picked up patient.
--- NOTE | 2021-11-24 11:58 | NUR ---
Informed patient's son that the patient was picked up and taken to [facility].
== END 2021-11-24 10:51 | DRG 853 ==
LOC: ER 21:30 → ED HOLD 11-20 01:27 → ORTHO 4S 11-20 19:17 → ICU 2S 11-23 02:26
PROVIDERS: ADMIT Internal Medicine; ATTEND Family Medicine
PROC: BP2U1ZZ Computerized Tomography (CT Scan) of Left Upper Extremity using Low Osmolar Contrast (ICD-10-PCS; 2021-11-19)
PROC: 0KN80ZZ Release Left Upper Arm Muscle, Open Approach (ICD-10-PCS; principal; 2021-11-20 15:44)
PROC: BP291ZZ Computerized Tomography (CT Scan) of Left Shoulder using Low Osmolar Contrast (ICD-10-PCS; 2021-11-21)
PROC: 5A1945Z Respiratory Ventilation, 24-96 Consecutive Hours (ICD-10-PCS; 2021-11-23)
PROC: 0BH17EZ Insertion of Endotracheal Airway into Trachea, Via Natural or Artificial Opening (ICD-10-PCS; 2021-11-23)
PROC: 5A1D90Z Performance of Urinary Filtration, Continuous, Greater than 18 hours Per Day (ICD-10-PCS; 2021-11-23)
PROC: 30233K1 Transfusion of Nonautologous Frozen Plasma into Peripheral Vein, Percutaneous Approach (ICD-10-PCS; 2021-11-23)
PROC: 30233M1 Transfusion of Nonautologous Plasma Cryoprecipitate into Peripheral Vein, Percutaneous Approach (ICD-10-PCS; 2021-11-23)
PROC: BW251ZZ Computerized Tomography (CT Scan) of Chest, Abdomen and Pelvis using Low Osmolar Contrast (ICD-10-PCS; 2021-11-23)
PROC: 06HY33Z Insertion of Infusion Device into Lower Vein, Percutaneous Approach (ICD-10-PCS; 2021-11-23)
PROC: 02HV33Z Insertion of Infusion Device into Superior Vena Cava, Percutaneous Approach (ICD-10-PCS; 2021-11-23)
PROC: B548ZZA Ultrasonography of Superior Vena Cava, Guidance (ICD-10-PCS; 2021-11-23)
PROC: 04HY32Z Insertion of Monitoring Device into Lower Artery, Percutaneous Approach (ICD-10-PCS; 2021-11-23)
PROC: 4A133B1 Monitoring of Arterial Pressure, Peripheral, Percutaneous Approach (ICD-10-PCS; 2021-11-23)
PROC: 4A133J1 Monitoring of Arterial Pulse, Peripheral, Percutaneous Approach (ICD-10-PCS; 2021-11-23)
PROC: 5A1D70Z Performance of Urinary Filtration, Intermittent, Less than 6 Hours Per Day (ICD-10-PCS; 2021-11-23)
PROC: 30233N1 Transfusion of Nonautologous Red Blood Cells into Peripheral Vein, Percutaneous Approach (ICD-10-PCS; 2021-11-24)
DX: A41.9 Sepsis, unspecified organism (principal); E43 Unspecified severe protein-calorie malnutrition; J96.00 Acute respiratory failure, unspecified whether with hypoxia or hypercapnia; K72.00 Acute and subacute hepatic failure without coma; R65.21 Severe sepsis with septic shock; L03.90 Cellulitis, unspecified; M00.9 Pyogenic arthritis, unspecified; N17.9 Acute kidney failure, unspecified; M79.A12 Nontraumatic compartment syndrome of left upper extremity; Z68.1 Body mass index [BMI] 19.9 or less, adult; N28.0 Ischemia and infarction of kidney; E87.2 Acidosis; G93.1 Anoxic brain damage, not elsewhere classified; Z51.5 Encounter for palliative care; D72.823 Leukemoid reaction; D69.59 Other secondary thrombocytopenia; K59.00 Constipation, unspecified; Z20.822 Contact with and (suspected) exposure to COVID-19; R68.0 Hypothermia, not associated with low environmental temperature; R34 Anuria and oliguria; F15.10 Other stimulant abuse, uncomplicated; F17.200 Nicotine dependence, unspecified, uncomplicated; Z59.00 Homelessness unspecified; Z88.1 Allergy status to other antibiotic agents
CPT/HCPCS: 99285; Z7506; Z7508; 36415; 36430; 36600; 70450; 71045; 71260; 73200; 73201; 74177; 80053; 80061; 80069; 80305; 80329; 81001; 81025; 82330; 82550; 82803; 82948; 83605; 83735; 83880; 84100; 84132; 84145; 84478; 85007; 85018; 85025; 85379; 85384; 85610; 85651; 85730; 86140; 86885; 86900; 86901; 86920; 87040; 87070; 87081; 87088; 87811; 90935; 94002; 94003; 94760; 94799; A4615; A4618; A6213; A6258; A6446; A6449; A6550; A7000; C1752; E1594; G0257; G0378; J0696; J1100; J1170; J1250; J1610; J1644; J2020; J2150; J2185; J2250; J2270; J2274; J2370; J2405; J2704; J2710; J3010; J3370; J3490; J7030; J7040; J7050; J7070; J7120; P9012; P9016; P9045; P9047; P9059; Q9967